=== PATIENT | female | born 2000 | race African-American/Black ===

== ENCOUNTER 2018-11-09 08:56 | Emergency (ER) | payer MEDICAID ==
[~2018-11-09] VITALS: Ht 167.6 cm; Wt 73.5 kg
[2018-11-09 09:03] VITALS: BP 127/69; Ht 167.6 cm; Wt 73.5 kg
== END 2018-11-09 09:37 | disposition home or self-care (01) ==
LOC: ED 08:56
DX: S63.602A Unspecified sprain of left thumb, initial encounter (principal); X58.XXXA Exposure to other specified factors, initial encounter; Y93.89 Activity, other specified; Y92.89 Other specified places as the place of occurrence of the external cause; Y99.8 Other external cause status

== ENCOUNTER 2019-09-17 18:17 | Emergency (ER) | payer OTHER, MEDICAID ==
[~2019-09-17] VITALS: Ht 175.3 cm; Wt 57.6 kg
[2019-09-17 18:30] VITALS: Ht 175.3 cm; Wt 57.6 kg
[2019-09-17 19:33] VITALS: BP 101/81
== END 2019-09-17 19:40 | disposition home or self-care (01) ==
LOC: ED 18:17
DX: S16.1XXA Strain of muscle, fascia and tendon at neck level, initial encounter (principal); V49.9XXA Car occupant (driver) (passenger) injured in unspecified traffic accident, initial encounter; Y93.I9 Activity, other involving external motion; Y92.413 State road as the place of occurrence of the external cause; Y99.8 Other external cause status